=== PATIENT | male | born 1965 | race African-American/Black ===

== ENCOUNTER 2019-01-13 08:47 | Emergency (ER) | payer SELFPAY ==
[~2019-01-13] VITALS: Ht 182.9 cm; Wt 89.8 kg
[2019-01-13 09:36] LABS: *BILIRUBIN,URIN NEGATIVE (NEGATIVE); *BLOOD, URINE 2+ (NEGATIVE); *COLOR,URINE YELLOW (YELLOW); *KETONES,URINE NEGATIVE (NEGATIVE); *UROBILINOGEN,URINE 0.2 E.U./dl (NORMAL); LEUKOCYTE ESTERASE ,URINE TRACE (NEGATIVE); NITRITE, URINE NEGATIVE (NEGATIVE); PH,URINE 5.5 (5.0-8.0); UGLUCOSE NEGATIVE (NEGATIVE)
[2019-01-13 09:43] LABS: *CLARITY,URINE HAZY (CLEAR)
[2019-01-13] MEDS ORDERED: AZITHROMYCIN 250 MG TABLET ONE (09:43)
[2019-01-13] MEDS ORDERED: LIDOCAINE HCL 1% 20 ML VIAL ONE (09:43)
[2019-01-13] MEDS ORDERED: CEFTRIAXONE 500 MG VIAL ONE (09:44)
[2019-01-13] MEDS ORDERED: AZITHROMYCIN 250 MG TABLET PO ONE (09:45)
[2019-01-13] MEDS ORDERED: CEFTRIAXONE 500 MG VIAL IM ONE (09:45)
[2019-01-13 09:56] LABS: BACTERIA,URINE FEW /HPF (NONE SEEN); MUCUS,URINE FEW /LPF (0-FEW); SQUAMOUS EPITHELIAL CELL,UR FEW /HPF (NONE SEEN)
[2019-01-13 10:19] VITALS: BP 152/90
[2019-01-16 05:33] LABS: *GC NAA Negative (Negative); *TRIC.VAG. NAA Negative (Negative)
== END 2019-01-13 10:27 | disposition home or self-care (01) ==
LOC: ER 08:47
DX: R31.29 Other microscopic hematuria (principal)
CPT/HCPCS: 81001; 87086; 87491; 96372; 99283; J0696; J3490; A4663; Q0144